=== PATIENT | male | born 1965 | race Caucasian/White ===

== ENCOUNTER 2018-07-02 07:15 | Inpatient (IN) | payer BC, MEDICAID ==
[~2018-07-02] VITALS: Ht 182.9 cm; Wt 135.4 kg
[2018-07-02] MEDS ORDERED: SODIUM CHLORIDE 0.9% 1,000 ML IVB ONE (07:55)
[2018-07-02] MEDS ORDERED: ONDANSETRON HCL 4 MG/2 ML VIAL IV ONE (08:00)
[2018-07-02] MEDS ORDERED: KETOROLAC TROMETH 30 MG/ML 1ML VIAL IV ONE (08:00)
[2018-07-02 08:15] LABS: Basophils # (auto) 0.1 uL; Basophils % (auto) 1.3 % (0.0-2.0); Eosinophils # (auto) 0.2 uL; Eosinophils % (auto) 2.7 % (0.0-7.0); Hemoglobin 14.9 g/dL (13.5-17.5); Lymphocytes % (auto) 24.9 % (10.0-50.0); Mean Corpuscular Hemoglobin 32.2 pg (28.0-32.0); Mean Corpuscular Hgb Conc. 34.6 g/dL (32.0-36.0); Mean Corpuscular Volume 93.1 fL (80.0-100.0); Monocytes # (auto) 0.7 uL; Monocytes % (auto) 8.4 % (0.0-12.0); Neutrophils % (auto) 62.7 % (37.0-80.0); Platelet Count (auto) 175 10^3/uL (140-450); Red Blood Cells 4.62 10^6/uL (4.5-5.90); Red Cell Distribution Width 13.1 % (11.8-14.3)
[2018-07-02 08:40] LABS: Albumin 3.4 g/dL (3.4-5.0); BUN/Creatinine Ratio 7.5; Bilirubin, Total 0.4 mg/dL (0.2-1.0); Calcium 8.4 mg/dL (8.5-10.1); Total Protein 6.9 g/dL (6.4-8.2)
[2018-07-02] MEDS ORDERED: TEMAZEPAM 15 MG CAP PO PRN (08:45)
[2018-07-02] MEDS ORDERED: traMADol HCL 50 MG TAB PO PRN (08:45)
[2018-07-02] MEDS ORDERED: MORPHINE SULFATE 4 MG/ML SYR/VIAL IV PRN (08:45)
[2018-07-02] MEDS ORDERED: ONDANSETRON HCL 4 MG/2 ML VIAL IV PRN (08:45)
[2018-07-02] MEDS ORDERED: DEXTROSE (50%) 50ML SYRG IV PRN (08:45)
[2018-07-02] MEDS ORDERED: NITROGLYCERIN 0.4 MG SL TAB SL PRN (08:45)
[2018-07-02] MEDS ORDERED: ACETAMINOPHEN 500 MG TAB PO PRN (08:45)
[2018-07-02] MEDS ORDERED: LORazepam 0.5 MG TAB PO PRN (08:45)
[2018-07-02] MEDS ORDERED: PIPERACILLIN-TAZOB 3.375GM 100 ML IV ONE (08:45)
[2018-07-02 08:46] LABS: Urine Bacteria FEW /hpf (None Seen); Urine Blood 3+ /uL (Negative); Urine Mucus FEW (None Seen); Urine Specific Gravity 1.021 (1.001-1.035); Urine WBC 13 /hpf (0 - 3); Urine WBC Clumps PRESENT /hpf (None Seen)
[2018-07-02] MEDS: SODIUM CHLORIDE 0.9% 1,000 ML IV SCH ×2 (09:08→17:38)
[2018-07-02 10:12] VITALS: BP 136/80
[2018-07-02] MEDS: PANTOPRAZOLE 40 MG TAB PO SCH (10:39)
[2018-07-02] MEDS: PIPERACILLIN-TAZOB 3.375GM 100 ML IV SCH ×3 (11:48→23:52)
[2018-07-02] MEDS: ACCU-CHEK COMFORT CURVE STRIP VI SCH ×3 (11:49→22:01)
[2018-07-02] MEDS: InsuLIN REG 1unit/0.01ml Soln (100units/ml) SC SCH ×3 (12:00→22:08)
[2018-07-02 13:00] VITALS: BP 122/75
[2018-07-02] MEDS: KETOROLAC TROMETH 30 MG/ML 1ML VIAL IV PRN ×2 (14:18→20:37)
[2018-07-02 17:00] VITALS: BP 111/70
[2018-07-02 22:00] VITALS: BP 110/74
[2018-07-03] MEDS: SODIUM CHLORIDE 0.9% 1,000 ML IV SCH (04:44)
[2018-07-03 05:12] VITALS: BP 116/70
[2018-07-03] MEDS: PIPERACILLIN-TAZOB 3.375GM 100 ML IV SCH ×2 (06:38→11:49)
[2018-07-03] MEDS: InsuLIN REG 1unit/0.01ml Soln (100units/ml) SC SCH ×2 (06:38→13:05)
[2018-07-03] MEDS: ACCU-CHEK COMFORT CURVE STRIP VI SCH ×2 (06:39→13:05)
[2018-07-03] MEDS: KETOROLAC TROMETH 30 MG/ML 1ML VIAL IV PRN (06:39)
[2018-07-03 09:00] VITALS: BP 116/58
[2018-07-03] MEDS: PANTOPRAZOLE 40 MG TAB PO SCH (10:01)
[2018-07-03 13:00] VITALS: BP 128/79
== END 2018-07-03 14:15 | disposition home or self-care (01) | DRG 690 ==
LOC: ER 07:15 → TELE 07:16 → TELE-EAST 09:57
PROVIDERS: ADMIT Internal Medicine; ATTEND Family Medicine
DX: N13.6 Pyonephrosis (principal); Z68.41 Body mass index [BMI] 40.0-44.9, adult; N20.2 Calculus of kidney with calculus of ureter; N13.2 Hydronephrosis with renal and ureteral calculous obstruction; E66.01 Morbid (severe) obesity due to excess calories; K57.90 Diverticulosis of intestine, part unspecified, without perforation or abscess without bleeding; R73.9 Hyperglycemia, unspecified; R31.9 Hematuria, unspecified; K76.0 Fatty (change of) liver, not elsewhere classified; K44.9 Diaphragmatic hernia without obstruction or gangrene; Z82.49 Family history of ischemic heart disease and other diseases of the circulatory system; Z87.442 Personal history of urinary calculi
CPT/HCPCS: 36415; 51702; 74176; 80053; 81001; 82962; 83036; 83690; 85025; 87086; 93005; 94761; 96361; 96365; 96375; G0378; J1815; J1885; J2405; J2543

== ENCOUNTER 2018-07-07 20:50 | Emergency (ER) | payer BC ==
[~2018-07-07] VITALS: Ht 182.9 cm; Wt 129.3 kg
[2018-07-07 22:13] LABS: Urine Bacteria NONE SEEN /hpf (None Seen); Urine Blood 2+ /uL (Negative); Urine Mucus FEW (None Seen); Urine Specific Gravity 1.018 (1.001-1.035); Urine WBC 2 /hpf (0 - 3)
[2018-07-08] MEDS ORDERED: SODIUM CHLORIDE 0.9% 1,000 ML IV ONE
[2018-07-08 00:42] LABS: Urine Bacteria NONE SEEN /hpf (None Seen); Urine Blood Negative /uL (Negative); Urine Mucus FEW (None Seen); Urine WBC 1 /hpf (0 - 3)
[2018-07-08 00:44] LABS: Basophils # (auto) 0.1 uL; Basophils % (auto) 1.3 % (0.0-2.0); Eosinophils # (auto) 0.3 uL; Eosinophils % (auto) 2.8 % (0.0-7.0); Hemoglobin 15.8 g/dL (13.5-17.5); Lymphocytes # (auto) 3.8 uL; Mean Corpuscular Hemoglobin 31.5 pg (28.0-32.0); Mean Corpuscular Hgb Conc. 33.6 g/dL (32.0-36.0); Mean Corpuscular Volume 93.7 fL (80.0-100.0); Monocytes # (auto) 1.2 uL; Monocytes % (auto) 10.5 % (0.0-12.0); Neutrophils # (auto) 5.8 uL; Neutrophils % (auto) 51.4 % (37.0-80.0); Nucleated Red Blood Cells % 0.1 %; Platelet Count (auto) 218 10^3/uL (140-450); Red Blood Cells 5.02 10^6/uL (4.5-5.90); Red Cell Distribution Width 12.9 % (11.8-14.3); White Blood Cell 11.3 10^3/uL (4.4-10.8)
[2018-07-08 01:03] LABS: Albumin 3.6 g/dL (3.4-5.0); BUN/Creatinine Ratio 11.5; Calcium 9.6 mg/dL (8.5-10.1); Potassium 3.8 mmol/L (3.5-5.1)
[2018-07-08 01:06] LABS: Bilirubin, Total 0.4 mg/dL (0.2-1.0); Total Protein 7.2 g/dL (6.4-8.2)
[2018-07-08 02:43] VITALS: BP 123/76
== END 2018-07-08 03:17 | disposition home or self-care (01) ==
LOC: ER 20:50
DX: N13.30 Unspecified hydronephrosis (principal); N20.0 Calculus of kidney; Z90.89 Acquired absence of other organs
CPT/HCPCS: 36415; 51702; 74176; 80053; 81001; 83036; 85025

== ENCOUNTER 2019-01-12 07:21 | Day surgery (SDC) | payer BC ==
[~2019-01-12] VITALS: Ht 182.9 cm; Wt 124.3 kg
[~2019-01-12 07:21] MED LIST: ALFU10TA12 PO; ASPI81TA27 PO
[2019-01-12] MEDS ORDERED: ANGIOMAX 250 MG VIAL IV ONE (07:38)
[2019-01-12] MEDS ORDERED: MIDAZOLAM HCL 1MG/1ML-2 ML VIAL ONE (07:39)
[2019-01-12] MEDS ORDERED: fentaNYL CITRATE 100 MCG/2 ML VL ONE (07:39)
[2019-01-12] MEDS ORDERED: VERAPAMIL 2.5MG/ML INJ 2ML VIAL IV ONE (07:39)
[2019-01-12] MEDS ORDERED: SODIUM CHL 0.9% 0 ML ONE (07:39)
[2019-01-12] MEDS ORDERED: IOHEXOL 350 MG/ML 100ML IJ ONE (07:44)
[2019-01-12] MEDS ORDERED: IODIXANOL 320MG/ML 100ML BTL IV ONE ×2 (07:46→07:55)
[2019-01-12] MEDS ORDERED: LIDOCAINE 2%HCL (LOCAL ANESTH.) INJ 20ML MDV ONE (07:54)
[2019-01-12] MEDS ORDERED: HEPARIN SODIUM (PORCINE) 5000 UNITS/ML 1ML VIAL ONE (08:22)
== END 2019-01-12 10:20 | disposition home or self-care (01) ==
LOC: CATH 07:21
PROVIDERS: ATTEND Internal Medicine
DX: I25.10 Atherosclerotic heart disease of native coronary artery without angina pectoris (principal); N20.0 Calculus of kidney; E11.9 Type 2 diabetes mellitus without complications; Z82.49 Family history of ischemic heart disease and other diseases of the circulatory system; Z79.899 Other long term (current) drug therapy; Z68.38 Body mass index [BMI] 38.0-38.9, adult; Z87.891 Personal history of nicotine dependence; Z79.84 Long term (current) use of oral hypoglycemic drugs; Z79.82 Long term (current) use of aspirin
CPT/HCPCS: 93458; A6257; C1769; C1894; J1644; J2250; J3010; J7030; Q9967; 99152